=== PATIENT | male | born 1940 | race Caucasian/White ===

== ENCOUNTER 2018-02-22 07:30 | Inpatient (IN) | payer MEDICARE, OTHER ==
[~2018-02-22] VITALS: Ht 162.6 cm; Wt 86.2 kg
[~2018-02-22 07:30] MED LIST: ATENOLOL25 MG ORAL; BENICAR HCT 201 EACH ORAL; PLAVIX75 MG ORAL; SIMVASTATIN40 MG ORAL
[2018-03-28] MEDS ORDERED: AMARYL1 MG ORAL (14:14)
[2018-03-28] MEDS ORDERED: ONGLYZA5 MG PO (14:14)
[2018-03-28] MEDS ORDERED: BENICAR40 MG ORAL (14:17)
[2018-03-28] MEDS ORDERED: Toprol XL PO (14:17)
[2018-03-28] MEDS ORDERED: PLAVIX75 MG ORAL (14:18)
[2018-03-28] MEDS ORDERED: CRESTOR20 MG ORAL (14:20)
[2018-03-28] MEDS ORDERED: MYBETRIQ PO (14:23)
[2018-03-28] MEDS ORDERED: VITAMIN C500 M1 ORAL (14:23)
[2018-03-28] MEDS ORDERED: VITAMIN D400 INTLU ORAL (14:24)
[2018-03-29] VITALS (12 sets, daily range): BP systolic 125–147; BP diastolic 71–85
[2018-03-29] MEDS ORDERED: ceFAZolin sod 1 GM in NS 55 ML IVPB ONE (07:00)
--- NOTE | 2018-03-29 10:02 | Anethesia Preoperative Eval ---
Anesthesia Pre-op PMH/ROS General Date of Evaluation: Mar 29, 2018 Anesthesiologist: Aravind ASA Score: ASA 3 Mallampati Score Class I : Soft palate, uvula, fauces, pillars visible Class II: Soft palate, uvula, fauces visible Class III: Soft palate, base of uvula visible Class IV: Only hard plate visible Mallampati Classification: Class III Surgeon: Masha Diagnosis: Right renal mass Surgical Procedure: Laparoscopic right partial nephrectomy Anesthesia History: none Family History: no anesthesia problems Allergies: Coded Allergies: No Known Allergies (Unverified , 03/29/18) Medications: see eMAR Patient NPO?: Yes NPO Date: Mar 28, 2018 NPO Time: 22:00 Past Medical History Cardiovascular: Reports: HTN, CAD - s/p stent 2004, [place] - 2004, other - HLD; Denies: valve dz, arrhythmia Pulmonary: Denies: asthma, COPD, GEORGE, other Gastrointestinal/Genitourinary: Reports: GERD, other - prostate cancer; Denies: CRI, ESRD Neurologic/Psychiatric: Denies: dementia, CVA, depression/anxiety, TIA, other Endocrine: Reports: DM; Denies: hypothyroidism, steroids, other HEENT: Denies: cataract (L), cataract (R), glaucoma, AFOGNAK (L), AFOGNAK (R), other Hematology/Immune: Denies: anemia, DVT, bleeding disorder, other Musculoskeletal/Integumentary: Reports: OA, DJD; Denies: RA, DDD, edema, other PSxH Narrative: lap josé manuel, prostatectomy Anesthesia Pre-op Phys. Exam Physician Exam see chart Constitutional: NAD Neurologic: other - bilateral eye redness and watery Cardiovascular: RRR Respiratory: CTA Airway Exam Mallampati Score: Class III MO: limited ROM: limited Teeth: intact Anesthesia Pre-op A/P Labs see chart Studies Pre-op Studies: EKG - sr Risk Assessment & Plan Assessment: ASA II Plan: GA Status Change Before Surgery: No Pre-Antibiotics Drug: Ancef 2g Given Within 1 Hr of Incision: Yes Luz Marina Mccann MD Mar 29, 2018 10:02
[2018-03-29] MEDS ORDERED: Bupivacaine w/Epi 0.5% 30ml Vial INJ ONE (10:51)
[2018-03-29] MEDS ORDERED: Bupivacaine 0.5% Inj 30 ml vial INJ ONE (10:51)
--- NOTE | 2018-03-29 11:29 | Pre-Procedure Note/Attestation ---
Pre-Procedure Note/Attestation Complete Prior to Procedure Planned Procedure: right Procedure Narrative: Laparoscopic partial vs radical nephrectomy Indications for Procedure Pre-Operative Diagnosis: renal mass Attestation I attest that I discussed the nature of the procedure; its benefits; risks and complications; and alternatives (and the risks and benefits of such alternatives ), prior to the procedure, with the patient (or the patient's legal junior sales representative). I attest that, if there was a reasonable possibility of needing a blood transfusion, the patient (or the patient's legal junior sales representative) was given the [facility] standardized written summary, pursuant to the [place] Blood Safety Act ([place] Health and Safety Code # 1645, as amended). I attest that I re-evaluated the patient just prior to the surgery and that there has been no change in the patient's H&P, except as documented below: Rodney Flanagan MD Mar 29, 2018 11:29
[2018-03-29] MEDS ORDERED: BSS 15ml BTL ONE (11:33)
[2018-03-29] MEDS ORDERED: Lidocaine 1% MPF 10mg/ml 5ml ONE ×2 (11:45→13:47)
[2018-03-29] MEDS ORDERED: fentaNYL 100 mcg/2 mL IV ONE ×2 (11:45→13:47)
[2018-03-29] MEDS ORDERED: Propofol 200mg/20ml IV ONE ×2 (11:45→13:47)
[2018-03-29] MEDS ORDERED: Midazolam 2mg/2ml Inj ONE ×2 (11:45→13:48)
[2018-03-29] MEDS ORDERED: Sterile Water Irrig 1000ml IRRIG ONE (11:50)
[2018-03-29] MEDS ORDERED: LR 1000ml ONE (11:50)
[2018-03-29] MEDS ORDERED: NS Irrig 1000ml ONE (11:50)
[2018-03-29] MEDS ORDERED: Zemuron 50mg/5ml Inj IV ONE (11:51)
[2018-03-29] MEDS ORDERED: Surgicel 4in x 8in TOPIC ONE (12:05)
[2018-03-29] MEDS ORDERED: NS Irrig 1000ml IRRIG ONE (12:05)
[2018-03-29] MEDS ORDERED: LR 1000ml 1,000 ML IVLG SCH (12:22)
[2018-03-29] MEDS ORDERED: Ketorolac 30mg Inj IV PRN (12:30)
[2018-03-29] MEDS ORDERED: Midazolam 2mg/2ml Inj IVP PRN (12:30)
[2018-03-29] MEDS ORDERED: fentaNYL 100 mcg/2 mL IV PRN (12:30)
[2018-03-29] MEDS ORDERED: Metoclopramide 10mg/2ml Inj IVP PRN (12:30)
[2018-03-29] MEDS ORDERED: DiphenhydrAMINE 50mg/ml Inj IVP PRN (12:30)
[2018-03-29] MEDS ORDERED: LORazepam Inj 2mg/ml 1ml IV PRN (12:30)
[2018-03-29] MEDS ORDERED: Hydromorphone 0.5mg/0.5ml inj IVP PRN (12:30)
--- NOTE | 2018-03-29 13:17 | Brief Operative Note ---
Immediate Post Operative Note Operative Note Pre-op Diagnosis: renal mass Procedure: Laparoscopic right partial nephrectomy Post-op Diagnosis: same Post-op Diagnosis: same as pre-op Surgeon: Peter flanagan Anesthesia: general Specimen: yes Complications: none Condition: stable Fluids: 1000 Estimated Blood Loss: minimal Drains: none Implant(s) used?: No Rodney Flanagan MD Mar 29, 2018 13:17
[2018-03-29] MEDS ORDERED: Acetaminophen 650 MG SUPP RECTAL PRN (13:30)
[2018-03-29] MEDS ORDERED: HYDROmorphone 1mg/ml Carpuject IVP PRN (13:30)
[2018-03-29] MEDS ORDERED: Norco 5mg/325mg tab ORAL PRN (13:30)
--- NOTE | 2018-03-29 13:35 | Immediate Post-Op Evaluation ---
Immediate Post-Op Evalulation Immediate Post-Op Evalulation Procedure: Laparoscopic right partial nephrectomy Date of Evaluation: Mar 29, 2018 Time of Evaluation: 13:37 IV Fluids: 1.3L Blood Products: 0 Estimated Blood Loss: 50 Urinary Output: 0 Blood Pressure Systolic: 128 Blood Pressure Diastolic: 73 Pulse Rate: 65 Respiratory Rate: 16 O2 Sat by Pulse Oximetry: 97 Temperature (Fahrenheit): 97 Pain Score (1-10): 0 Nausea: No Vomiting: No Complications 0 Patient Status: awake, reacts, patent, none Hydration Status: adequate Drug: Ancef 2g Given Within 1 Hr of Incision: Yes Luz Marina Mccann MD Mar 29, 2018 13:35
[2018-03-29 14:08] LABS: BASOPHILS % (AUTO) 0.3 % (0.0-2.0); EOSINOPHILS % (AUTO) 1.3 % (0.0-3.0); HEMATOCRIT 48.2 % (42.0-52.0); HEMOGLOBIN 15.9 G/DL (14.2-18.0); LYMPHOCYTES % (AUTO) 22.1 % (20.0-45.0); MEAN CORPUSCULAR VOLUME 88 FL (80-99); MONOCYTES % (AUTO) 4.8 % (1.0-10.0); NEUTROPHILS % (AUTO) 71.4 % (45.0-75.0); PLATELET COUNT 147 K/UL (150-450); RED BLOOD COUNT 5.48 M/UL (4.70-6.10); RED CELL DISTRIBUTION WIDTH 12.3 % (11.6-14.8); WHITE BLOOD COUNT 9.5 K/UL (4.8-10.8)
[2018-03-29] MEDS ORDERED: Ketorolac 30mg Inj ONE (14:16)
[2018-03-29 14:17] LABS: ANION GAP 9 mmol/L (5-15); BLOOD UREA NITROGEN 28 mg/dL (7-18); CALCIUM 8.9 MG/DL (8.5-10.1); CARBON DIOXIDE 28 MMOL/L (21-32); CHLORIDE 106 MMOL/L (98-107); CREATININE 1.7 MG/DL (0.55-1.30); POTASSIUM 4.3 MMOL/L (3.5-5.1); SODIUM 143 MMOL/L (136-145)
[2018-03-29] MEDS ORDERED: Atropine Inj 1mg/10ml Syr ONE (14:47)
--- NOTE | 2018-03-29 15:00 | NUR ---
NURSE NOTES: REC'D FROM PACU SP LAP.RT PARTIAL NEPHRECTOMY. AWAKE /ALERT. IV INFUSING. ABDOMINAL LAP SITES X3 INTACT WITH BLOOD STAIN, V/S TAKEN. NO C/O PAIN F/C PATENT DRAINING YELLOW URINE. IN NO DISTRESS.
[2018-03-29] MEDS ORDERED: Glycopyrrolate 0.2mg/ml 1ml Vial ONE (15:10)
[2018-03-29] MEDS ORDERED: Neostigmine 1mg/ml 10ml Inj ONE (15:10)
--- NOTE | 2018-03-29 16:51 | NUR ---
NURSE NOTES: DR Tahmina QUICK CALLED RE PT'S HOME RECONCILI[facility]. LEFT MESSAGE TO RETURN CALL.
[2018-03-29] MEDS: D5 1/2NS w/KCl 20mEq 1,000 ML IV SCH (16:55)
[2018-03-29] MEDS: Docusate 100mg cap ORAL SCH (17:42)
--- NOTE | 2018-03-29 18:33 | NUR ---
NURSE NOTES: SMITH OUTPUT [address]CC. DR Tahmina QUICK CALLED LEFT MESSAGE TO RETURN CALL.
--- NOTE | 2018-03-29 19:00 | NUR ---
NURSE NOTES: RESTING. IN BED. IN NO APPARENT DISTRESS.
--- NOTE | 2018-03-29 19:48 | NUR ---
HAND-OFF: Report given to Fadia LAI RN.
[2018-03-29] MEDS: ceFAZolin 2gm/50ml Premix 50 ML IV SCH (22:16)
--- NOTE | 2018-03-29 22:30 | Operative Note - Dictated ---
DATE OF OPERATION: 03/29/2018 REASON FOR SURGERY: A 2 cm right kidney mass. OPERATION: Laparoscopic partial right nephrectomy. OPERATED BY: Rodney Flanagan M.D. ANESTHESIA: General. FINDINGS: A 2 cm mass in the lower pole of the right kidney. INDICATIONS FOR SURGERY: The patient had incidental renal mass found on the CT urogram, first on the ultrasound, then on the CT, suspicious for renal cell carcinoma. Treatment options were explained to him in great length including all potential complications. He signed a consent. DESCRIPTION OF PROCEDURE: The patient was brought to the operating room, placed in right lateral decubital position, and prepped and draped in standard fashion. Infraumbilical incision was made and hand port was placed into the abdomen with additional two 12 mm trocars. Dissection started mobilizing the ascending colon medially exposing the right renal fossa, which was covered by extensive amount of fat. Once access to the lower pole became very apparent and anterior surface of the right kidney. Using electrocautery and sharp dissection, tumor was circumcised and removed within 1 cm clear margins. Bleeding was stopped with electrocautery as well as additional FloSeal and three interrupted 0 Vicryl sutures. There was no evidence of active bleeding. Total blood loss was approximately 10 mL. The rest of the kidney was preserved. The ureter was clearly seen and preserved. Sponge count and instrument count were calculated was correct. There was no evidence of bowel injuries or liver damage. Exploratory laparoscopy was performed confirming no evidence of bleeding and all the trocars and hand port was removed and wound was closed with running 0 Vicryl sutures and radhames for the skin. Rodney Flanagan M.D. DR: REJI JOB#: [id number] CC:
--- NOTE | 2018-03-29 22:45 | Cardiology Progress Note ---
Subjective Subjective the patient with CAD, old OK, post removal of kidney mass Objective Last 24 Hour Vital Signs Date Time Temp Pulse Resp B/P (MAP) Pulse Ox O2 Delivery O2 Flow Rate FiO2 03/29/18 20:00 98.8 65 16 134/71 (92) 94 03/29/18 18:00 98.1 65 19 125/76 (92) 99 03/29/18 17:00 97.7 64 19 129/77 (94) 99 03/29/18 16:00 98.3 64 19 131/78 (95) 03/29/18 16:00 98.3 60 19 129/77 (94) 99 03/29/18 15:30 98.7 62 20 133/78 (96) 99 03/29/18 15:00 Nasal Cannula 3.0 Nasal Cannula 3.0 03/29/18 14:30 61 16 131/75 97 Nasal Cannula 3 03/29/18 14:19 67 16 146/75 97 Nasal Cannula 3 03/29/18 14:00 61 16 142/73 97 Nasal Cannula 3 03/29/18 13:42 79 16 147/75 97 Simple Mask 8 03/29/18 13:37 77 16 139/85 97 Simple Mask 8 03/29/18 13:35 65 16 97 03/29/18 13:32 97.0 65 16 128/73 97 Simple Mask 8 03/29/18 09:58 Room Air 03/29/18 09:58 97.6 65 18 128/78 (95) 97 Laboratory Tests Test 03/29/18 14:00 White Blood Count 9.5 K/UL (4.8-10.8) Red Blood Count 5.48 M/UL (4.70-6.10) Hemoglobin 15.9 G/DL (14.2-18.0) Hematocrit 48.2 % (42.0-52.0) Mean Corpuscular Volume 88 FL (80-99) Mean Corpuscular Hemoglobin 29.0 PG (27.0-31.0) Mean Corpuscular Hemoglobin Concent 32.9 G/DL (32.0-36.0) Red Cell Distribution Width 12.3 % (11.6-14.8) Platelet Count 147 K/UL (150-450) L Mean Platelet Volume 7.6 FL (6.5-10.1) Neutrophils (%) (Auto) 71.4 % (45.0-75.0) Lymphocytes (%) (Auto) 22.1 % (20.0-45.0) Monocytes (%) (Auto) 4.8 % (1.0-10.0) Eosinophils (%) (Auto) 1.3 % (0.0-3.0) Basophils (%) (Auto) 0.3 % (0.0-2.0) Sodium Level 143 MMOL/L (136-145) Potassium Level 4.3 MMOL/L (3.5-5.1) Chloride Level 106 MMOL/L (98-107) Carbon Dioxide Level 28 MMOL/L (21-32) Anion Gap 9 mmol/L (5-15) Blood Urea Nitrogen 28 mg/dL (7-18) H Creatinine 1.7 MG/DL (0.55-1.30) H Estimat Glomerular Filtration Rate mL/min (>60) Glucose Level 149 MG/DL (74-106) H Calcium Level 8.9 MG/DL (8.5-10.1) aMria Alejandra Guan MD Mar 29, 2018 22:45
[2018-03-30] VITALS: BP 134/71
[2018-03-30] MEDS: D5 1/2NS w/KCl 20mEq 1,000 ML IV SCH ×3 (03:00→22:14)
[2018-03-30 04:00] VITALS: BP 147/88
[2018-03-30] MEDS: ceFAZolin 2gm/50ml Premix 50 ML IV SCH (04:00)
[2018-03-30 06:39] LABS: BASOPHILS % (AUTO) 0.3 % (0.0-2.0); EOSINOPHILS % (AUTO) 1.2 % (0.0-3.0); HEMATOCRIT 43.1 % (42.0-52.0); HEMOGLOBIN 14.7 G/DL (14.2-18.0); LYMPHOCYTES % (AUTO) 14.8 % (20.0-45.0); MEAN CORPUSCULAR VOLUME 89 FL (80-99); MONOCYTES % (AUTO) 6.2 % (1.0-10.0); NEUTROPHILS % (AUTO) 77.6 % (45.0-75.0); PLATELET COUNT 123 K/UL (150-450); RED BLOOD COUNT 4.87 M/UL (4.70-6.10); RED CELL DISTRIBUTION WIDTH 12.1 % (11.6-14.8); WHITE BLOOD COUNT 6.8 K/UL (4.8-10.8)
[2018-03-30 07:09] LABS: ANION GAP 8 mmol/L (5-15); BLOOD UREA NITROGEN 31 mg/dL (7-18); CALCIUM 8.1 MG/DL (8.5-10.1); CARBON DIOXIDE 25 MMOL/L (21-32); CHLORIDE 105 MMOL/L (98-107); CREATININE 1.6 MG/DL (0.55-1.30); POTASSIUM 4.2 MMOL/L (3.5-5.1); SODIUM 138 MMOL/L (136-145)
--- NOTE | 2018-03-30 07:15 | NUR ---
HAND-OFF: Report given to SABAS Bill.
--- NOTE | 2018-03-30 07:25 | NUR ---
NURSE NOTES: Report received from outgoing RN, rounds made. Patient in semi-fowlers position in bed, on RA, no distress. IVF infusing to left hand as ordered, D5.45 NS with 20 KCL at 100 ml/hr, site asymptomatic. FC draining yellow clear urine to gravity. NPO status. Bilateral SCDs in place. Demonstrated/encouraged IS and abdominal splinting with rolled blanket when coughing, patient returned demonstration. Abdominal dressing x1 upper mid, clean/dry, x1 lower mid with dry blood stained noted. Call light in reach, bed in lowest position. Will continue to monitor.
[2018-03-30 08:00] VITALS: BP 103/55
--- NOTE | 2018-03-30 08:36 | 48 Hour Post Anesthesia Eval ---
Post Anesthesia Evaluation Procedure: Laparoscopic right partial nephrectomy Date of Evaluation: Mar 30, 2018 Time of Evaluation: 08:35 Blood Pressure Systolic: 135 0: 64 Pulse Rate: 72 Respiratory Rate: 20 Temperature (Fahrenheit): 97.6 O2 Sat by Pulse Oximetry: 98 Airway: patent Nausea: No Vomiting: No Pain Intensity: 2 Hydration Status: adequate Cardiopulmonary Status: stable Mental Status/LOC: patient returned to baseline Follow-up Care/Observations: n/a Post-Anesthesia Complications: none Follow-up care needed: N/A William Narayanan MD Mar 30, 2018 08:36
[2018-03-30] MEDS: Docusate 100mg cap ORAL SCH ×2 (09:20→18:52)
--- NOTE | 2018-03-30 11:37 | NUR ---
PT EVALUATION NOTE: Patient seen for PT evaluation. Patient independent with all functional mobility without an assistive device. Skilled inpatient PT intervention not indicated, patient discharged from PT, Landy RN notified. Anticipate DC home with family assistance once cleared by MD. No DME needs anticipated.
[2018-03-30 12:00] VITALS: BP 125/79
--- NOTE | 2018-03-30 15:45 | Consultation ---
DATE OF CONSULTATION: 03/30/2018 INTERNAL MEDICINE CONSULTATION HISTORY OF PRESENT ILLNESS: This is a 77-year-old male, who has undergone laparoscopic partial right nephrectomy for a 2 centimeter mass right lower pole of the kidney. The patient is doing well postoperative day #1. Denies any complaints. He has been seen postoperatively by Dr. Maria Alejandra Guan as well. He has a history of CAD, previous MO. Denies any new complaints. PAST MEDICAL HISTORY: Notable for diabetes mellitus, hypertension, CAD, B12 deficiency. HOME MEDICATIONS: Reviewed and reconciled in the chart, include Nexium, , Plavix, Benicar, Tylenol, Amaryl, Onglyza, and Tagamet. PHYSICAL EXAMINATION: GENERAL: Reveals a [id number]-lidy. HEENT: Unremarkable. CHEST: Clear breath sounds bilaterally. ABDOMEN: Soft. EXTREMITIES: No edema. IMPRESSION: 1. Postoperative day #1 status post right partial nephrectomy. 2. Diabetes mellitus. 3. Hypertension. DISCUSSION: The patient is off aspirin and Plavix. We will resume upon discharge. Currently he will be monitored for anemia and postoperative care. 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 Justin Pichardo M.D. DR: Jesus JOB#: [id number] CC:
[2018-03-30 16:00] VITALS: BP 134/88
--- NOTE | 2018-03-30 16:00 | NUR ---
NURSE NOTES: Spoke with Dr. Flanagan, labs reviewed. Orders received to start clear liquid diet and discontinue FC. Patient updated on new orders, verbalized understanding. Blount output 500 ml yellow clear urine at 1100, discontinued at 1100. Encouraged patient on oral hydration, voided in urinal 400 ml without difficulty, yellow clear urine. Patient ambulating in halls, frequently, gait steady, sitting up to chair at this time. Call light in reach, will continue to monitor.
--- NOTE | 2018-03-30 19:40 | NUR ---
HAND-OFF: Report given to Rhonda OBREGON.
--- NOTE | 2018-03-30 19:58 | NUR ---
NURSE NOTES: Patient resting in bed, no s/s distress noted. Voiding in urinal. Bed in lowest position for safety. Call light within reach.
[2018-03-30 20:00] VITALS: BP 135/78
[2018-03-31] VITALS: BP 140/79
[2018-03-31 04:00] VITALS: BP 136/84
[2018-03-31 06:54] LABS: ANION GAP 5 mmol/L (5-15); BLOOD UREA NITROGEN 13 mg/dL (7-18); CALCIUM 8.5 MG/DL (8.5-10.1); CARBON DIOXIDE 29 MMOL/L (21-32); CHLORIDE 106 MMOL/L (98-107); CREATININE 1.5 MG/DL (0.55-1.30); POTASSIUM 4.8 MMOL/L (3.5-5.1); SODIUM 140 MMOL/L (136-145)
--- NOTE | 2018-03-31 07:20 | NUR ---
HAND-OFF: Report given to Landy OBREGON.
--- NOTE | 2018-03-31 07:30 | NUR ---
NURSE NOTES: Report received from outgoing RN, rounds made. Patient resting in bed, semi-fowlers position. Abdominal dressings x3 intact, (x2 upper right/mid are clean/dry and x1 lower mid is dry/bloody stained). IVF infusing to LH as ordered, site asymptomatic. Patient denies NV/SOB on RA. Encouraged IS use. Call light in reach, bed in lowest position, will continue to monitor.
[2018-03-31 08:00] VITALS: BP 137/93
[2018-03-31 08:19] LABS: BASOPHILS % (AUTO) 0.5 % (0.0-2.0); EOSINOPHILS % (AUTO) 2.7 % (0.0-3.0); HEMATOCRIT 47.6 % (42.0-52.0); HEMOGLOBIN 15.6 G/DL (14.2-18.0); LYMPHOCYTES % (AUTO) 16.1 % (20.0-45.0); MEAN CORPUSCULAR VOLUME 90 FL (80-99); MONOCYTES % (AUTO) 8.5 % (1.0-10.0); NEUTROPHILS % (AUTO) 72.2 % (45.0-75.0); PLATELET COUNT 114 K/UL (150-450); RED CELL DISTRIBUTION WIDTH 12.1 % (11.6-14.8); WHITE BLOOD COUNT 7.6 K/UL (4.8-10.8)
[2018-03-31] MEDS: Docusate 100mg cap ORAL SCH (08:25)
[2018-03-31] MEDS: D5 1/2NS w/KCl 20mEq 1,000 ML IV SCH (08:26)
--- NOTE | 2018-03-31 08:45 | NUR ---
NURSE NOTES: Vitals assessed, within normal limits. Patient complains of Headache 5/10, medicated with Tylenol 2 tablets (650 mg total). Encourage PO intake. Abdomen soft, round. Denies flatulence. BS hypoactive, no NV. Tolerating clear liquids. No BM. Voiding well in bathroom with urinal, yellow clear urine (575 ml out). Assisted patient to transfer to bathroom then to chair. Call light in reach. Will continue to monitor.
[2018-03-31 12:00] VITALS: BP 125/80
--- NOTE | 2018-03-31 12:00 | NUR ---
NURSE NOTES: Spoke with Dr. Flaangan, discharge orders received. Patient and daughter updated on new orders. Plan to discharge at 1530, coordinated with patient and daughter.
--- NOTE | 2018-03-31 13:38 | Pulmonology Progress Note ---
Assessment/Plan Assessment/Plan IMPRESSION: 1. Postoperative day #2 status post right partial nephrectomy. 2. Diabetes mellitus. 3. Hypertension. DISCUSSION: The patient is off aspirin and Plavix. I will resume upon discharge. Will dc home Justin Pichardo M.D. Subjective Interval Events: No new events Constitutional: Reports: no symptoms HEENT: Repors: no symptoms Respiratory: Reports: no symptoms Cardiovascular: Reports: no symptoms Gastrointestinal/Abdominal: Reports: no symptoms Genitourinary: Reports: no symptoms Allergies: Coded Allergies: No Known Allergies (Unverified , 03/29/18) Objective Last 24 Hour Vital Signs Date Time Temp Pulse Resp B/P (MAP) Pulse Ox O2 Delivery O2 Flow Rate FiO2 03/31/18 12:00 97.7 64 18 125/80 (95) 98 03/31/18 09:00 Room Air Room Air 03/31/18 08:00 97.8 70 18 137/93 (108) 96 03/31/18 04:00 98.7 74 20 136/84 (101) 98 03/31/18 00:00 98.6 68 18 140/79 (99) 98 03/30/18 21:00 Room Air Room Air 03/30/18 20:00 99.1 78 18 135/78 (97) 96 03/30/18 16:00 98.0 78 20 134/88 (103) 95 Intake and Output 03/30/18 03/31/18 18:59 06:59 Intake Total 1200 ml 1240 ml Balance 1200 ml 1240 ml Intake Oral 240 ml IV Total 1200 ml 1000 ml # Voids 5 General Appearance: no acute distress HEENT: normocephalic Respiratory/Chest: chest wall non-tender, lungs clear Cardiovascular: normal peripheral pulses, normal rate Abdomen: normal bowel sounds Microbiology Date/Time Source Procedure Growth Status 03/29/18 09:45 Nasal Nares MRSA Culture - Final NO METHICILLIN RESISTANT STAPH AUREUS... Complete Laboratory Tests 03/31/18 05:35: White Blood Count 7.6, Red Blood Count 5.30, Hemoglobin 15.6, Hematocrit 47.6, Mean Corpuscular Volume 90, Mean Corpuscular Hemoglobin 29.3, Mean Corpuscular Hemoglobin Concent 32.7, Red Cell Distribution Width 12.1, Platelet Count 114L, Mean Platelet Volume 7.0, Neutrophils (%) (Auto) 72.2, Lymphocytes (%) (Auto) 16.1L, Monocytes (%) (Auto) 8.5, Eosinophils (%) (Auto) 2.7, Basophils (%) (Auto ) 0.5, Sodium Level 140, Potassium Level 4.8, Chloride Level 106, Carbon Dioxide Level 29, Anion Gap 5, Blood Urea Nitrogen 13, Creatinine 1.5H, Estimat Glomerular Filtration Rate , Glucose Level 149H, Calcium Level 8.5 Current Medications Medications (Trade) Dose Ordered Sig/Michelle Route PRN Reason Start Time Stop Time Status Last Admin Dose Admin Acetaminophen (Tylenol) 650 mg Q4H PRN ORAL FEVER 03/29/18 13:30 04/28/18 13:29 Acetaminophen (Tylenol) 650 mg Q4H PRN RECTAL FEVER 03/29/18 13:30 04/28/18 13:29 Acetaminophen (Tylenol) 650 mg Q6H PRN ORAL Mild Pain (Pain Scale 1-3) 03/29/18 13:30 04/28/18 13:29 03/31/18 08:26 Acetaminophen/ Hydrocodone Bitart (Nogal 5/325) 1 tab Q4H PRN ORAL Moderate Pain (Pain Scale 4-6) 03/29/18 13:30 04/05/18 13:29 Dextrose/ Electrolytes 1,000 ml @ 100 mls/hr Q10H IV 03/29/18 17:00 04/28/18 16:59 03/31/18 08:26 Docusate Sodium (Colace) 100 mg TWICE A DAY ORAL 03/29/18 18:00 04/28/18 17:59 03/31/18 08:25 Hydromorphone HCl (Dilaudid) 1 mg Q3H PRN IVP pain score 4-6 03/29/18 13:30 04/05/18 13:29 Ondansetron HCl (Zofran) 4 mg Q6H PRN IVP Nausea & Vomiting 03/29/18 13:30 04/28/18 13:29 Temazepam (Restoril) 7.5 mg DAILYPRN PRN ORAL Insomnia 03/29/18 13:30 04/05/18 13:29 03/30/18 01:12 Justin Pichardo MD Mar 31, 2018 13:38
[2018-03-31] MEDS ORDERED: DOK100 M1 ORAL (13:39)
[2018-03-31] MEDS ORDERED: NORCO 5-325 TA1 EACH ORAL (13:39)
--- NOTE | 2018-03-31 15:45 | NUR ---
NURSE NOTES: Discharge instructions and prescription x1 reviewed with patient, spouse and daughter, verbalized understanding. Reinforced no Aspirin, no Plavix, no NSAIDs, verbalized understanding. IV discontinued. All belongings, discharge instructions and prescription x1 sent home with patient. Patient ambulated with RN assist to lobby. Patient stable. Discharged home at 1545.
--- NOTE | 2018-03-31 22:23 | Cardiology Progress Note ---
Assessment/Plan Assessment/Plan post partial nephrectomy continue aspirin and statins Subjective Subjective doing well no chest pain, mild abdominal distention Objective Last 24 Hour Vital Signs Date Time Temp Pulse Resp B/P (MAP) Pulse Ox O2 Delivery O2 Flow Rate FiO2 03/31/18 12:00 97.7 64 18 125/80 (95) 98 03/31/18 09:00 Room Air Room Air 03/31/18 08:00 97.8 70 18 137/93 (108) 96 03/31/18 04:00 98.7 74 20 136/84 (101) 98 03/31/18 00:00 98.6 68 18 140/79 (99) 98 General Appearance: no apparent distress EENT: PERRL/EOMI Neck: no JVD Rhythm: NSR Cardiovascular: regular rhythm Respiratory/Chest: crackles/rales Abdomen: distended Extremities: trace edema Intake and Output 03/30/18 03/31/18 19:00 07:00 Intake Total 1100 ml 1340 ml Balance 1100 ml 1340 ml Intake Oral 240 ml IV Total 1100 ml 1100 ml # Voids 5 Laboratory Tests Test 03/31/18 05:35 White Blood Count 7.6 K/UL (4.8-10.8) Red Blood Count 5.30 M/UL (4.70-6.10) Hemoglobin 15.6 G/DL (14.2-18.0) Hematocrit 47.6 % (42.0-52.0) Mean Corpuscular Volume 90 FL (80-99) Mean Corpuscular Hemoglobin 29.3 PG (27.0-31.0) Mean Corpuscular Hemoglobin Concent 32.7 G/DL (32.0-36.0) Red Cell Distribution Width 12.1 % (11.6-14.8) Platelet Count 114 K/UL (150-450) L Mean Platelet Volume 7.0 FL (6.5-10.1) Neutrophils (%) (Auto) 72.2 % (45.0-75.0) Lymphocytes (%) (Auto) 16.1 % (20.0-45.0) L Monocytes (%) (Auto) 8.5 % (1.0-10.0) Eosinophils (%) (Auto) 2.7 % (0.0-3.0) Basophils (%) (Auto) 0.5 % (0.0-2.0) Sodium Level 140 MMOL/L (136-145) Potassium Level 4.8 MMOL/L (3.5-5.1) Chloride Level 106 MMOL/L (98-107) Carbon Dioxide Level 29 MMOL/L (21-32) Anion Gap 5 mmol/L (5-15) Blood Urea Nitrogen 13 mg/dL (7-18) Creatinine 1.5 MG/DL (0.55-1.30) H Estimat Glomerular Filtration Rate mL/min (>60) Glucose Level 149 MG/DL (74-106) H Calcium Level 8.5 MG/DL (8.5-10.1) Microbiology Date/Time Source Procedure Growth Status 03/29/18 09:45 Nasal Nares MRSA Culture - Final NO METHICILLIN RESISTANT STAPH AUREUS... Complete Maria Alejandra Guan MD Mar 31, 2018 22:23
--- NOTE | 2018-04-01 18:09 | Cardiology Progress Note ---
Assessment/Plan Assessment/Plan post partial nephrectomy continue aspirin and statins Subjective Subjective [id number] Maria Alejandra Guan MD Apr 01, 2018 18:09
--- NOTE | 2018-04-01 23:45 | Consultation ---
DATE OF CONSULTATION: 03/29/2018 CARDIOLOGY CONSULTATION CONSULTING PHYSICIAN: Maria Alejandra Guan M.D. REFERRING PHYSICIAN: Dr. Whitlock. HISTORY OF PRESENT ILLNESS: This is well known to me patient with history of coronary artery disease and myocardial infarction, who just underwent partial nephrectomy due to the renal cancer by Dr. Flanagan. I am seeing this patient in the evening to provide appropriate care for his cardiac status. The patient actually is doing rather well and he is comfortable. He has mild pain in the abdominal area and some distention and very vague palpitations, but otherwise he has been doing very well. PAST MEDICAL HISTORY: Significant for old myocardial infarction with angioplasty of RCA. He also has history of diabetes, hypertension, benign prostatic hypertrophy, and renal cancer and he also has low back pain. He underwent multiple injections. MEDICATIONS: His home medications include Tylenol, atenolol, glimepiride, olmesartan, rosuvastatin, Onglyza, vitamin D, and . ALLERGIES: Not reported. HABITS: There is no history of drinking, smoking, or drug abuse. REVIEW OF SYSTEMS: The patient feels fine. No chest pain. No palpitations. No dyspnea. Mild abdominal distention. The rest of the review of system was done in details and it was unremarkable. PHYSICAL EXAMINATION: VITAL SIGNS: His vitals significant for blood pressure 128/78, heart rate 65, temperature is normal, and oxygen saturation 96%. GENERAL: The patient appears to be comfortable, alert, and interactive. NECK: Supple. HEENT: PERRLA. EOMI. LUNGS: Few crackles at bases. HEART: Regular with accented A2. ABDOMEN: Soft, distended, tender. There are several incisions. Bowel sounds are diminished, but present. EXTREMITIES: Lower extremity edema. LABORATORY DATA: Reviewed. His hemoglobin is 15.9, WBC 9.5, platelets 147, and his creatinine 1.5. Otherwise, the rest of the laboratories are unremarkable. Glucose was 149. IMPRESSION AND RECOMMENDATION: This is a very pleasant gentleman, who I know well from my office followup and appears like after surgery he is doing very well. His antiplatelet regimen with aspirin is going to be started as soon as it is approved by Nephrology. Maria Alejandra Guan M.D. DR: DANIELA JOB#: [id number] CC:
--- NOTE | 2018-04-03 15:16 | Discharge Summary ---
Discharge Summary Discharge Summary _ DATE OF ADMISSION: 03/29/2018 DATE OF DISCHARGE: 04/01/2018 DISCHARGED BY: Dr. Flanagan REASON FOR ADMISSION: 77 years old male with past medical history of coronary artery disease, myocardial infarction, coronary stent placement in 2005, hypertension, hypercholesterolemia, diabetes mellitus, prostate cancer, osteoarthritis, had incidental finding of renal mass on the ultrasound and then CT urogram, which was suspicious for renal cell carcinoma. Treatment options were explained and discussed with patient in detail, including all potential complications. Patient opted for surgical intervention and signed consent. Patient subsequently was admitted for elective laparoscopic partial right nephrectomy. CONSULTANTS: sap pi architect Dr. Guan pulmonary [facility] COURSE: Patient admitted and subsequently undergone laparoscopic partial right nephrectomy. Course of recovery was uneventful . Patient undergone administration of prophylactic antibiotics. 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 Patient was off aspirin and Plavix prior to surgery and during the hospitalization. Pain management was addressed, and pain was controlled. Patient initially had Blount catheter . Hand irrigation provided as needed. Blount catheter was subsequently discontinued. Patient was able to void freely without difficulty. Sylmar oral intake was encouraged.. Patient was able to tolerate diet Patient was ambulated in hallway with nursing staff. Fall precautions maintained. Patient was safe for ambulation. Laparoscopic incisions clean and intact. Blood pressure was closely monitored and remained stable , no need for antihypertensive medication during the admission. Blood sugar was managed with sliding scale of insulin as needed. Blood sugar remained stable. Discharge instructions provided. Prescriptions provided. Patient was stable for discharge home with outpatient follow-up with surgeon. Resume aspirin and Plavix when cleared by surgeon. FINAL DIAGNOSES: Right kidney mass: clear cell renal cell carcinoma- per pathology s/p laparoscopic partial right nephrectomy Hypertension Diabetes mellitus DISCHARGE MEDICATIONS: See Medication Reconciliation list. DISCHARGE INSTRUCTIONS: Patient was discharged home . Follow-up with surgeon as outpatient as advised by surgeon I have been assigned to dictate discharge summary for this account. I was not involved in the patient's management. Nette Guillen NP Apr 03, 2018 15:16
== END 2018-03-31 15:49 | disposition home or self-care (01) | DRG 658 ==
LOC: SDSOVERFLO 03-29 09:28 → 3E 03-29 15:36
PROC: 0TB04ZZ Excision of Right Kidney, Percutaneous Endoscopic Approach (ICD-10-PCS; principal; 2018-03-29 12:45)
DX: C64.1 Malignant neoplasm of right kidney, except renal pelvis (principal); I25.10 Atherosclerotic heart disease of native coronary artery without angina pectoris; I11.9 Hypertensive heart disease without heart failure; I25.2 Old myocardial infarction; Z95.5 Presence of coronary angioplasty implant and graft; E78.00 Pure hypercholesterolemia, unspecified; E11.9 Type 2 diabetes mellitus without complications; Z85.46 Personal history of malignant neoplasm of prostate; M19.90 Unspecified osteoarthritis, unspecified site; Z79.02 Long term (current) use of antithrombotics/antiplatelets; Z79.82 Long term (current) use of aspirin; N40.0 Benign prostatic hyperplasia without lower urinary tract symptoms; M54.5 Low back pain
CPT/HCPCS: 36415; 80048; 82962; 85025; 86850; 86900; 86901; 87081; 94003; 94150; J2250; J2405; J2710